=== PATIENT | female | born 1980 | race Caucasian/White ===

== ENCOUNTER 2021-06-04 10:37 | Outpatient (REF) | payer MEDICARE, MEDICAID, SELFPAY ==
[2021-06-04 14:00] LABS: MANUAL DIFF FLAG NO
[2021-06-04 14:05] LABS: Basophils Percent Auto 0.4 % (0-2); Eosinophils Absolute Auto 0.2 X10*3/uL (0.0-0.4); Eosinophils Percent Auto 1.7 % (0-4); Hematocrit 38.7 % (37.0-47.0); Hemoglobin 13.1 g/dl (12.0-16.0); Imm Gran Abs Auto 0.02 X10*3/uL (0.00-0.03); Imm Gran Pct Auto 0.2 % (0.0-0.4); Lymphocytes Percent Auto 33.4 % (20-40); Mean Corpuscular HGB Conc 33.9 g/dl (31.0-35.0); Mean Corpuscular Hemoglobin 30.2 pg (27.0-33.0); Mean Corpuscular Volume 89.2 fL (80.0-98.0); Mean Platelet Volume 10.2 fL (9.4-12.3); Monocytes Absolute Auto 0.5 X10*3/uL (0.1-1.2); Monocytes Percent Auto 5.4 % (2-11); Neutrophils Absolute Auto 5.3 x10*3/uL (2.0-8.3); Neutrophils Percent Auto 58.9 % (45-73); Platelet Count 311 X10*3/uL (160-400); Red Blood Count 4.34 X10*6/uL (4.20-5.50)
[2021-06-04 14:35] LABS: Alanine Aminotransferase 57 U/L (0-31); Albumin Level 4.2 g/dL (3.5-5.0); Alkaline Phosphatase 59 U/L (39-117); Anion Gap 15 (12-20); Aspartate Amino Transferase 44 U/L (5-31); Bilirubin Total 0.4 mg/dL (0.0-1.0); Blood Urea Nitrogen 21 mg/dL (9-16); Calcium 9.5 mg/dL (8.4-10.2); Carbon Dioxide 25 mmol/L (22-29); Chloride 103 mmol/L (96-108); Cholesterol 126 mg/dL; Estimated Glomerular Filt Rate > 60; Glucose Random 99 mg/dL (60-115); HDL Cholesterol 33 mg/dL; LDL Cholesterol Calculated 36 mg/dl; Potassium 4.8 mmol/L (3.3-5.1); Sodium 138 mmol/L (135-145); Total Protein 7.1 g/dL (6.5-8.0); Triglycerides 285 mg/dL
== END 2021-06-04 10:38 | disposition home or self-care (01) ==
LOC: HO.10HDL 10:37
PROVIDERS: Visit Provider Nurse Practitioner Psychiatric/Mental Health
DX: Z72.89 Other problems related to lifestyle (principal)
CPT/HCPCS: 36415; 80053; 80061; 85025

== ENCOUNTER 2022-07-06 08:20 | Outpatient (REF) | payer MEDICARE, MEDICAID, SELFPAY ==
[2022-07-06 08:34] LABS: MANUAL DIFF FLAG NO
--- NOTE | 2022-07-06 08:35 | ECG_ITS ---
Test Reason : LONGTERM PSYCH MEDS Blood Pressure : / mmHG Vent. Rate : 063 BPM Atrial Rate : 063 BPM P-R Int : 186 ms QRS Dur : 094 ms QT Int : 418 ms P-R-T Axes : 043 -12 020 degrees QTc Int : 427 ms Normal sinus rhythm Nonspecific T wave abnormality Abnormal ECG No previous ECGs available Referred By: Cathleen Cota Electronically Signed By:BRIDGET DIAZ MD
[2022-07-06 08:53] LABS: Basophils Absolute Auto 0.1 X10*3/uL (0.0-0.2); Basophils Percent Auto 0.6 % (0-2); Eosinophils Absolute Auto 0.4 X10*3/uL (0.0-0.4); Eosinophils Percent Auto 4.6 % (0-4); Hematocrit 38.9 % (37.0-47.0); Hemoglobin 13.3 g/dl (12.0-16.0); Imm Gran Abs Auto 0.03 X10*3/uL (0.00-0.03); Imm Gran Pct Auto 0.4 % (0.0-0.4); Lymphocytes Absolute Auto 2.6 X10*3/uL (1.2-4.9); Lymphocytes Percent Auto 30.8 % (20-40); Mean Corpuscular HGB Conc 34.2 g/dl (31.0-35.0); Mean Corpuscular Hemoglobin 29.3 pg (27.0-33.0); Mean Corpuscular Volume 85.7 fL (80.0-98.0); Mean Platelet Volume 9.5 fL (9.4-12.3); Monocytes Absolute Auto 0.5 X10*3/uL (0.1-1.2); Monocytes Percent Auto 6.1 % (2-11); Neutrophils Absolute Auto 4.8 x10*3/uL (2.0-8.3); Neutrophils Percent Auto 57.5 % (45-73); Platelet Count 247 X10*3/uL (160-400); Red Blood Count 4.54 X10*6/uL (4.20-5.50); Red Cell Distribution Width 12.4 % (11.0-16.0); White Blood Count 8.3 X10*3/uL (4.8-10.8)
[2022-07-06 09:24] LABS: Anion Gap 16 (12-20); Blood Urea Nitrogen 20 mg/dL (9-16); Calcium 9.5 mg/dL (8.4-10.2); Carbon Dioxide 24 mmol/L (22-29); Chloride 106 mmol/L (96-108); Cholesterol 86 mg/dL; Estimated Glomerular Filt Rate 60; Glucose Random 149 mg/dL (60-115); HDL Cholesterol 36 mg/dL; LDL Cholesterol Calculated 39 mg/dl; Potassium 4.8 mmol/L (3.3-5.1); Sodium 141 mmol/L (135-145); Triglycerides 57 mg/dL
== END 2022-07-06 08:21 | disposition home or self-care (01) ==
LOC: HO.LAB 08:20
PROVIDERS: PCP Internal Medicine; Visit Provider Nurse Practitioner Psychiatric/Mental Health
DX: F31.81 Bipolar II disorder (principal); Z79.899 Other long term (current) drug therapy
CPT/HCPCS: 36415; 80048; 80061; 85025; 93005

== ENCOUNTER 2023-02-14 11:00 | Outpatient (AMB) | payer MEDICARE, MEDICAID, SELFPAY ==
--- NOTE | 2023-02-14 11:02 | A.OFFVIS_ITS ---
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 Scribed for Dr. Masood Mcpherson by Sole Marquez, behavioral medical director, on 02/14/2023 at 11:27 am EST. Lopez is a 42 year old female who presents today as a new patient with complaints of right knee pain. Patient reports that this knee has been painful sine December. Her pain is keeping her up at night, increased pain with rom and weight bearing. She is taking ibuprofen and tylenol which help mildly. She has been wearing abrace that she was fit for at urgent care, which has been helping but she states that it is too tight/small. They also gave her a topical cream ,diclofenac, which has been very helpful. 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 She denies injury. Pain is located over the medial aspect of her right knee. She states is painful when she walks and she has occasional severe pain when she is just sitting doing nothing. She denies locking, clicking,giving way. HPI Comments History of Present Illness Details Jessica Lewis is a 42 year old female who presents today with complaints of right knee pain since December. States her knee is giving her pain throughout the night resulting in her not being able to sleep at night. She recently was seen at Urgent care on Jan.31. She also has trouble bending knee and walking. Reports taking ibuprofen for pain . Reports being Type 2 diabetic and has been taken of metformin. Her last sugar levels were 115-120 and does not have a high sugar intake. [facility] Surgical History (Updated 02/14/23 @ 11:20 by Jewell Chang [facility]) History of nasal surgery H/O section (2012) Status post right foot surgery Social History (Updated 02/14/23 @ 11:20 by Jewell Chang CMA) Cigarettes Per Day: 2 Current occupational status: disabled Physical Exam Extrem Other: Tenderness to palpation medial joint line. Negative Romulo's No effusion Office Procedures Joint Injection/Drain Joint Injection/Drain Details: Injected 1 mL of Decadron and 3 mL 1% lidocaine and 3 mL of 0.25% Marcaine. Site was prepped using aseptic technique. Patient tolerated the procedure well. Primary Site: right knee Approach Used: anterolateral Coding - Large joint Procedure code (CPT) selection complete Results Reviewed Results Reviewed: 02/14/23 11:30 BUPivacaine MPF 0.25 % [Sensorcaine-MPF 0.25% 10 ML] 10 ml .ROUTE .STK-MED ONE Lidocaine HCl 2 % MPF [Xylocaine 2 % MPF] 5 ml .ROUTE .STK-MED ONE dexAMETHasone sod phosphate [Decadron] 4 mg .ROUTE .STK-MED ONE I personally reviewed relevant radiographs. Nl right knee radiographs Assessment & Plan Assessment & Plan (1) Right knee pain: Code(s): M25.561 - Pain in right knee Plan: I injected her right knee. I reviewed her x-rays with her and recommend physical therapy. She also has a knee sleeve that would she was given as the 1 she was given in the emergency department is too small. I recommend she co ntinue de and anti-inflammatory creams an should her pain not improve with all the above treatments she can return to see me. Orders: Orders PT Evaluation and Treatment Today M25.561 - Pain in right knee XR knee standing BI Today M25.569 - Pain in unspecified knee XR knee RT 2V Today M25.569 - Pain in unspecified knee Coding Level of Care Code New Pt Level 3 (49135) Diagnoses Right knee pain M25.561 CPT Codes Coding - 19434 Large joint: 41776 - Large joint ([id number])
== END 2023-02-14 12:00 | disposition home or self-care (01) ==
PROVIDERS: PCP Internal Medicine; Visit Provider Orthopaedic Surgery
DX: M25.561 Pain in right knee (principal)
CPT/HCPCS: 20610; 99203

== ENCOUNTER 2023-02-14 11:00 | Outpatient (REF) | payer MEDICARE, MEDICAID, SELFPAY ==
--- NOTE | ~2023-02-14 | XR_ITS ---
EXAMINATION: XR RIGHT KNEE, BILATERAL KNEES, STANDING CLINICAL INFORMATION: Bilateral knee pain. COMPARISON: None available. TECHNIQUE: 2 views of right knee. AP standing view of bilateral knees. FINDINGS: AP view of the right knee demonstrates minimal joint space narrowing and tiny medial marginal osteophytes. 3 mm sclerotic focus overlying the medial femoral condyle may represent a bone island. Left knee joint effusion. Small left quadriceps enthesophyte. Minimal medial joint space narrowing and marginal osteophytes. XR/XR knee standing BI IMPRESSION: Left knee joint effusion with minimal degenerative changes.
--- NOTE | ~2023-02-14 | XR_ITS ---
EXAMINATION: XR RIGHT KNEE, BILATERAL KNEES, STANDING CLINICAL INFORMATION: Bilateral knee pain. COMPARISON: None available. TECHNIQUE: 2 views of right knee. AP standing view of bilateral knees. FINDINGS: AP view of the right knee demonstrates minimal joint space narrowing and tiny medial marginal osteophytes. 3 mm sclerotic focus overlying the medial femoral condyle may represent a bone island. Left knee joint effusion. Small left quadriceps enthesophyte. Minimal medial joint space narrowing and marginal osteophytes. XR/XR knee RT 2V IMPRESSION: Left knee joint effusion with minimal degenerative changes.
== END 2023-02-14 11:01 | disposition home or self-care (01) ==
LOC: HO.HOSX 11:00
PROVIDERS: PCP Internal Medicine; Visit Provider Orthopaedic Surgery
DX: M25.561 Pain in right knee (principal)
CPT/HCPCS: 20610; 73560; 73565; J1100

== ENCOUNTER → 2023-03-24 09:20 | Outpatient (REF) | payer MEDICARE, MEDICAID, SELFPAY ==
--- NOTE | 2023-03-24 09:27 | ECG_ITS ---
Test Reason : f31.81, f42.8 Blood Pressure : / mmHG Vent. Rate : 067 BPM Atrial Rate : 067 BPM P-R Int : 170 ms QRS Dur : 094 ms QT Int : 412 ms P-R-T Axes : 035 -07 032 degrees QTc Int : 435 ms Normal sinus rhythm Normal ECG When compared with ECG of 06-JUL-2022 08:39, No significant change was found Referred By: Cathleen Cota Electronically Signed By:TOÑITO GONSALEZ MD
[2023-03-24 09:37] LABS: MANUAL DIFF FLAG NO
[2023-03-24 10:02] LABS: Basophils Percent Auto 0.4 % (0-2); Eosinophils Absolute Auto 0.2 X10*3/uL (0.0-0.4); Eosinophils Percent Auto 1.8 % (0-4); Hematocrit 40.4 % (37.0-47.0); Hemoglobin 13.9 g/dl (12.0-16.0); Imm Gran Abs Auto 0.06 X10*3/uL (0.00-0.03); Imm Gran Pct Auto 0.6 % (0.0-0.4); Lymphocytes Absolute Auto 3.1 X10*3/uL (1.2-4.9); Lymphocytes Percent Auto 28.5 % (20-40); Mean Corpuscular HGB Conc 34.4 g/dl (31.0-35.0); Mean Corpuscular Hemoglobin 29.4 pg (27.0-33.0); Mean Corpuscular Volume 85.6 fL (80.0-98.0); Mean Platelet Volume 9.5 fL (9.4-12.3); Monocytes Absolute Auto 0.7 X10*3/uL (0.1-1.2); Monocytes Percent Auto 6.4 % (2-11); Neutrophils Absolute Auto 6.7 x10*3/uL (2.0-8.3); Neutrophils Percent Auto 62.3 % (45-73); Platelet Count 262 X10*3/uL (160-400); Red Blood Count 4.72 X10*6/uL (4.20-5.50); Red Cell Distribution Width 12.4 % (11.0-16.0); White Blood Count 10.8 X10*3/uL (4.8-10.8)
[2023-03-24 10:41] LABS: Alanine Aminotransferase 37 U/L (0-31); Albumin Level 4.5 g/dL (3.5-5.0); Alkaline Phosphatase 68 U/L (39-117); Anion Gap 15 (12-20); Aspartate Amino Transferase 21 U/L (5-31); Bilirubin Total 0.5 mg/dL (0.0-1.0); Blood Urea Nitrogen 19 mg/dL (9-16); Calcium 9.8 mg/dL (8.4-10.2); Carbon Dioxide 24 mmol/L (22-29); Chloride 105 mmol/L (96-108); Cholesterol 121 mg/dL (<200); Estimated Glomerular Filt Rate 57; Glucose Fasting 147 mg/dL (60-99); HDL Cholesterol 30 mg/dL (>40); LDL Cholesterol Calculated 69 mg/dL (<100); Potassium 4.5 mmol/L (3.3-5.1); Sodium 139 mmol/L (135-145); Total Protein 7.7 g/dL (6.5-8.0); Triglycerides 110 mg/dL (<150)
== END ==
LOC: HO.CARD 09:20
PROVIDERS: PCP Physician Assistant Medical; Visit Provider Nurse Practitioner Psychiatric/Mental Health
DX: F31.81 Bipolar II disorder (principal); F42.8 Other obsessive-compulsive disorder; Z79.899 Other long term (current) drug therapy
CPT/HCPCS: 36415; 80053; 80061; 85025; 93005

== ENCOUNTER 2024-04-12 09:35 | Outpatient (REF) | payer MEDICARE, MEDICAID, SELFPAY ==
--- NOTE | 2024-04-12 09:56 | ECG_ITS ---
Test Reason : med check Blood Pressure : / mmHG Vent. Rate : 062 BPM Atrial Rate : 062 BPM P-R Int : 196 ms QRS Dur : 096 ms QT Int : 290 ms P-R-T Axes : 042 -08 015 degrees QTc Int : 294 ms Normal sinus rhythm Nonspecific T wave abnormality Abnormal ECG When compared with ECG of 24-MAR-2023 09:38, QT has shortened Referred By: Cathleen Cota Electronically Signed By:Guero Vargas
[2024-04-12 09:59] LABS: MANUAL DIFF FLAG NO
[2024-04-12 10:25] LABS: Basophils Absolute Auto 0.1 X10*3/uL (0.0-0.2); Basophils Percent Auto 0.6 % (0-2); Eosinophils Absolute Auto 0.2 X10*3/uL (0.0-0.4); Eosinophils Percent Auto 2.7 % (0-4); Hematocrit 36.9 % (37.0-47.0); Hemoglobin 12.8 g/dl (12.0-16.0); Imm Gran Abs Auto 0.03 X10*3/uL (0.00-0.03); Imm Gran Pct Auto 0.4 % (0.0-0.4); Lymphocytes Percent Auto 36.4 % (20-40); Mean Corpuscular HGB Conc 34.7 g/dl (31.0-35.0); Mean Corpuscular Volume 86.6 fL (80.0-98.0); Mean Platelet Volume 9.3 fL (9.4-12.3); Monocytes Absolute Auto 0.5 X10*3/uL (0.1-1.2); Monocytes Percent Auto 6.3 % (2-11); Neutrophils Absolute Auto 4.4 x10*3/uL (2.0-8.3); Neutrophils Percent Auto 53.6 % (45-73); Platelet Count 258 X10*3/uL (160-400); Red Blood Count 4.26 X10*6/uL (4.20-5.50); Red Cell Distribution Width 12.8 % (11.0-16.0); White Blood Count 8.2 X10*3/uL (4.8-10.8)
[2024-04-12 10:54] LABS: Alanine Aminotransferase 48 U/L (0-31); Albumin Level 4.3 g/dL (3.5-5.0); Alkaline Phosphatase 53 U/L (39-117); Anion Gap 10 (12-20); Aspartate Amino Transferase 22 U/L (5-31); Bilirubin Total 0.6 mg/dL (0.0-1.0); Blood Urea Nitrogen 15 mg/dL (9-16); Carbon Dioxide 25 mmol/L (22-29); Chloride 107 mmol/L (96-108); Cholesterol 112 mg/dL (<200); Estimated Glomerular Filt Rate 52; Glucose Fasting 123 mg/dL (60-99); HDL Cholesterol 29 mg/dL (>40); LDL Cholesterol Calculated 58 mg/dL (<100); Potassium 4.7 mmol/L (3.3-5.1); Sodium 137 mmol/L (135-145); Triglycerides 125 mg/dL (<150)
== END 2024-04-12 09:36 | disposition home or self-care (01) ==
LOC: HO.LAB 09:35
PROVIDERS: PCP Physician Assistant Medical; Visit Provider Nurse Practitioner Psychiatric/Mental Health
DX: Z79.899 Other long term (current) drug therapy (principal)
CPT/HCPCS: 36415; 80053; 80061; 85025; 93005

== ENCOUNTER → 2024-04-12 09:56 | Outpatient (BNV) | payer MEDICARE, MEDICAID, SELFPAY | PROVIDERS: PCP Physician Assistant Medical; Visit Provider Internal Medicine Cardiovascular Disease | DX: R94.31 Abnormal electrocardiogram [ECG] [EKG] (principal) | CPT/HCPCS: 93010 ==

== ENCOUNTER → 2025-03-25 09:50 | Outpatient (REF) | payer MEDICARE, MEDICAID, SELFPAY ==
--- NOTE | 2025-03-25 09:58 | ECG_ITS ---
Test Reason : EKG DUE TO MED COMBINATIONS Blood Pressure : */* mmHG Vent. Rate : 60 BPM Atrial Rate : 60 BPM P-R Int : 198 ms QRS Dur : 96 ms QT Int : 430 ms P-R-T Axes : 45 -12 9 degrees QTcB Int : 430 ms Atrial-sensed ventricular-paced rhythm Abnormal ECG When compared with ECG of 12-Apr-2024 09:56, No significant changes seen Referred By: Cathleen Cota Electronically Signed By: BENJAMIN BUCKNER
[2025-03-25 10:13] LABS: MANUAL DIFF FLAG NO
[2025-03-25 10:28] LABS: Hematocrit 38.2 % (37.0-47.0); Hemoglobin 13.1 g/dl (12.0-16.0); Imm Gran Abs Auto 0.04 X10*3/uL (0.00-0.03); Imm Gran Pct Auto 0.4 % (0.0-0.4); Lymphocytes Absolute Auto 3.0 X10*3/uL (1.2-4.9); Mean Corpuscular HGB Conc 34.3 g/dl (31.0-35.0); Mean Corpuscular Hemoglobin 29.9 pg (27.0-33.0); Mean Corpuscular Volume 87.2 fL (80.0-98.0); NRBC Abs Auto 0.000 X10*3/uL (0.0-0.012); NRBC Pct Auto 0.0 /100WBC (0.0-0.2); Platelet Count 269 X10*3/uL (160-400); Red Blood Count 4.38 X10*6/uL (4.20-5.50); White Blood Count 9.0 X10*3/uL (4.8-10.8)
[2025-03-25 11:15] LABS: Alanine Aminotransferase 56 U/L (0-31); Albumin Level 4.6 g/dL (3.5-5.0); Alkaline Phosphatase 62 U/L (39-117); Anion Gap 12 (12-20); Aspartate Amino Transferase 34 U/L (5-31); Blood Urea Nitrogen 17 mg/dL (9-16); Calcium 9.7 mg/dL (8.4-10.2); Carbon Dioxide 25 mmol/L (22-29); Chloride 109 mmol/L (96-108); Cholesterol 110 mg/dL (<200); Estimated Glomerular Filt Rate > 60; HDL Cholesterol 31 mg/dL (>40); Potassium 4.6 mmol/L (3.3-5.1); Sodium 141 mmol/L (135-145); Total Protein 7.2 g/dL (6.5-8.0); Triglycerides 89 mg/dL (<150)
--- OUTSIDE RECORDS SUMMARY | 2025-03-25 11:31 | XMS_ITS | Encounter Summary ---
Author Organization [employer] Address [address] [place] [address] Care Team Providers Care Direct Casting Operator Name Role Phone Unavailable Primary Care Provider Unavailabl e Encounter Details Date Type Department Care Team (Late st Contact Info) Description 07/30/2022 Abstract [facility] ADULT DENTAL [address] [place] [address] Kurt Love, JESSICA [address] [place] [address] Social History Tobacco Use Types Packs/Day Years Used Date Smoking Tobacco: Former Cigarettes Smokeless Tobacco: Former Comments Unknown Sex and Gender Information Value Date Recorded Sex Assigned at Female 03/29/2022 10:24 AM EDT Legal Sex Female 10:24 AM EDT Gender Identity Female 03/29/2022 10:24 AM EDT Sexual Orientation Straight 03/29/2022 10 :24 AM EDT COVID-19 Exposure Response Date Recorded In the last 10 days, have yo u been in contact with someone who was confirmed or suspected to have Coronavirus/COVID-19? No / Unsure 07/29/2022 8:47 AM EST documented as of this encounter Plan of Treatment Not on file documented as of this encounter Visit Diagnoses Not on filedocumented in this encounter
--- OUTSIDE RECORDS SUMMARY | 2025-03-25 11:31 | XMS_ITS | Encounter Summary ---
Author Organization [employer] Address [address] [place] [address] Care Team Providers Care Emergency Medical Technician/Driver Name Role Phone Unavailable Primary Care Provider Unavailabl e Reason for Visit * Reason Comments Med Refill Encounter Details Date Type Department Care Team (Late st Contact Info) Description 02/20/2024 Refill [facility] ADULT DENTAL [address] [place] [address] Tequila Smith BDS Social History Tobacco Use Types Packs/Day Years Used Date Smoking Tobacco: Former Cigarettes Smokeless Tobacco: Former Comments Unknown Sex and Gender Information Value Date Recorded Sex Assigned at Female 03/29/2022 10:24 AM EDT Legal Sex Female 10:24 AM EDT Gender Identity Female 03/29/2022 10:24 AM EDT Sexual Orientation Straight 03/29/2022 10 :24 AM EDT documented as of this encounter Miscellaneous Notes * Telephone Encounter - Marino León DDS - 02/23/2024 9:15 AM EDT Approving, but needs appt for additional refills. documented in this encounter Plan of Treatment Not on file documented as of this encounter Visit Diagnoses Not on filedocumented in this encounter
--- OUTSIDE RECORDS SUMMARY | 2025-03-25 11:31 | XMS_ITS | Clinical Summary ---
Author Organization [employer] Address [address] [place] [address] Care Team Providers Care Food And Beverage Attendant Name Role Phone Unavailable Primary Care Provider Unavailabl e Allergies Active Allergy Reactions Criticality Noted Date Comments Medroxyprogesterone 04/11/2013 Medroxyprogesterone Acetate Hives High 07/15/19 23 Nortriptyline 07/15/2022 Ziprasidone Anaphylaxis High 04/11/2013 Medications propranolol (Inderal) 60 MG tablet Take 1 tablet by mouth every 12 (twelve) hours. Active doxepin (SINEquan) 25 MG capsule TAKE 1 CAPSULE BY MOUTH EVERYDAY AT BEDTIME 07/01/19 23 Active escitalopram (Lexapro) 5 MG tablet Take 10 mg by mouth. 07/12/19 23 Active atorvastatin (Lipitor) 40 MG tablet Take 1 tablet by mouth Once per day. 11/13/19 23 Active buPROPion XL (Wellbutrin XL) 300 MG 24 hr tablet Take 300 mg by mouth Once per day. Active clonazePAM (KlonoPIN) 1 MG tablet Take 1 tablet by mouth if needed each day. 10/07/19 21 Active Aimovig 140 MG/ML injection INJECT 1 MILLILITER (140MG) SUBCUTANEOUSLY MONTHLY IN ABDOMEN, THIGH, OR OUTER UPPER ARM Active Etonogestrel (NEXPLANON SC) See Instructions, Subcutaneous Infusion Once, 0 Refills, Maintenance, 10/31/23 14:30:00 EDT, Partial fill upon patient request if the prescription is for a schedule II opioid drug. 10/31/19 24 Active fluticasone (Flonase) 50 MCG/ACT nasal spray Administer 2 sprays into each nostril Once per day. 12/30/19 23 Active hydrOXYzine pamoate (Vistaril) 50 MG capsule TAKE 1 CAPSULE BY MOUTH THREE TIMES A DAY NEEDED ANXIETY, PANIC Active ibuprofen 800 MG tablet TAKE 1 TABLET BY MOUTH 3 TIMES A DAY WITH FOOD NEEDED FOR HEADACHE 08/30/19 21 Active lamoTRIgine (LaMICtal) 200 MG tablet TAKE 1 TABLET BY MOUTH ONCE A DAY MOOD STABILITY Active metFORMIN (Glucophage) 500 MG tablet Take 1 tablet by mouth 2 times daily. Active naproxen (Naprosyn) 500 MG tablet Take 1 tablet by mouth 2 times daily. 10/17/19 22 Active omeprazole (PriLOSEC) [address] capsule Take 1 capsule by mouth Once per day. 12/25/19 23 Active QUEtiapine (SEROquel) 100 MG tablet Take 100 mg by mouth in the morning. Active SUMAtriptan (Imitrex) 100 MG tablet TAKE 1 TAB BY MOUTH ONCE WITH FLUIDS AT ONSET OF MIGRAINE. MAY REPEAT AFTER 2 HRS IF NEEDED Active betamethasone dipropionate 0.05 % cream Active Sodium Fluoride (DentaGel) 1.1 % gel PLEASE USE PEA SIZE TO BRUSH YOUR TEETH TWICE DAILY. SPIT AFTER BRUSHING. DO NOT RINSE. 56 g 02/23/20 24 Active Sodium Fluoride (PreviDent 5000 Booster Plus) 1.1 % paste Apply 1 Application. to teeth 2 times daily. 112 g 3 11/15/19 25 Active Mounjaro 7.5 MG/0.5ML solution auto-injector Inject 7.5 mg every week by subcutaneous route for 30 days. 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 Diabetes mellitus 07/28/2018 Anxiety state 07/03/2013 Overview (11/13/2024): RECORDED 07/03/2013 10:39AM BY AMADEO ALVARADO, OFFICE VISIT Hyperlipidemia 07/03/2013 Overview (11/13/2024): RECORDED 07/03/2013 10:38AM BY AMADEO ALVARADO, OFFICE VISIT Migraine 05/30/2006 Social History Tobacco Use Types Packs/Day Years Used Date Smoking Tobacco: Former Cigarettes Smokeless Tobacco: Former Tobacco Cessation:Counseling Given: Not Answered Comments Unknown Sex and Gender Information Value Date Recorded Sex Assigned at Female 03/29/2022 10:24 AM EDT Legal Sex Female 10:24 AM EDT Gender Identity Female 03/29/2022 10:24 AM EDT Sexual Orientation Straight 03/29/2022 10 :24 AM EDT Last Filed Vital Signs Vital Sign Reading Time Taken Comments Blood Pressure 122/80 12/06/2024 9:31 AM EDT Pulse 60 12/06/2024 9:31 AM EDT Temperature - - Respiratory Rate - - Oxygen Saturation - - Inhaled Oxygen Concentration - - Weight - - Height - - Body Mass Index - - Plan of Treatment Health Maintenance Due Date Last Done Comments Dental X-Ray: Full Mouth 1981 Depression Screening 1981 Diabetes: Hemoglobin A1C 1981 HIV Screening 1981 Lipid Panel 1981 SDOH Screening 1981 Disability Screening 1981 Diabetes: Foot Exam 1991 Eye Exam 1991 Alcohol/Substance Use Screening 1993 Family Planning (PISQ) 1996 HPV Vaccines (1 - 3-dose series) 1996 Hepatitis C Screening 1999 Diabetes: Urine Protein Screening 2000 Hepatitis A Vaccines (1 of 2 - Risk 2-dose series) 2000 Hepatitis B Vaccines (1 of 3 - 19+ 3-dose series) 2000 Pap Smear 2002 Cervical Cancer Screening 2011 HPV/Cotest 2011 COVID-19 Vaccine ( season) 2025 03/25/2022, 03/25/2021, 09/17/2020, Additional history exists Influenza Vaccine (#1) 2025 , 02/11/2022, 02/24/2021, Additional history exists Dental Oral Exam 05/17/2025 11/14/2024, 12/2023, 12/14/2023 Dental Prophylaxis 05/17/2025 11/14/2024, 12/14/2023 Dental X-Ray: Bitewings 11/15/2025 11/15/19 25, 11/13/2024, 12/14/2023 Tobacco Screening 12/06/2025 12/06/2024 DTaP/Tdap/Td Vaccines (4 - Td or Tdap) 06/09/2026 06/09/2016, 11/20/2012, 09/12/2008 Mammogram 09/07/2026 09/07/2024, 10/0 01/2024, 05/26/2021 Zoster Vaccines (1 of 2) 2031 RSV Patients and Patients Aged 60 years or older (1 - 1-dose 75+ series) 2056 Pneumococcal Vaccine: Pediatrics (0 to 5 Years) and At-Risk Patients (6 to 49) Years Completed 12/03/2022, 11/27/2020 HIB Vaccines Aged Out No longer eligi ble based on patient's age to complete this topic IPV Vaccines Aged Out No longer eligi ble based on patient's age to complete this topic Meningococcal B Vaccine Aged Out No l onger eligible based on patient's age to complete this topic Meningococcal Vaccine Aged Out No lynn spenser eligible based on patient's age to complete this topic RSV under 20 months Aged Out No longe r eligible based on patient's age to complete this topic Rotavirus Vaccines Aged Out No longer eligible based on patient's age to complete this topic Procedures Procedure Name Priority Date/Time Associated Diagnosis Comments PROPHYLAXIS - ADULT Routine 11/14/2024 9 :00 AM EDT BITEWINGS - 4 RADIOGRAPHIC IMAGES Routine 11/14/2024 9:00 AM EDT PERIODIC ORAL EVALUATION - ESTABLISHED PATIENT Routine 11/14/2024 9:00 AM EDT from Last 3 Months or Most Recently Relevant to Health Maintenance Insurance [address] [place] [id number] [facility] STAND ADULT
--- OUTSIDE RECORDS SUMMARY | 2025-03-25 11:31 | XMS_ITS | Encounter Summary ---
Author Organization [employer] Address [address] [place] [address] Care Team Providers Care Straight Line Edger Name Role Phone Unavailable Primary Care Provider Unavailabl e Encounter Details Date Type Department Care Team (Latest Contact Info) Description 11/07/2018 Abstract [facility] CONVERSIONS Dental, Provider, DDS Social History Tobacco Use Types Packs/Day Years Used Date Smoking Tobacco: Never Assessed Comments Unknown Sex and Gender Information Value Date Recorded Sex Assigned at Female 03/29/2022 10:24 AM EDT Legal Sex Female 10:24 AM EDT Gender Identity Female 03/29/2022 10:24 AM EDT Sexual Orientation Straight 03/29/2022 10 :24 AM EDT documented as of this encounter Plan of Treatment Not on file documented as of this encounter Visit Diagnoses Not on filedocumented in this encounter
--- OUTSIDE RECORDS SUMMARY | 2025-03-25 11:31 | XMS_ITS | Encounter Summary ---
Author Organization [employer] Address [address] [place] [id number] Care Team Providers Care Primary Teaching Assistant Name Role Phone Unavailable Primary Care Provider Unavailabl e Encounter Details Date Type Department Care Team (Latest Contact Info) Description 10/21/2020 Abstract [facility] CONVERSIONS Dental, Provider, DDS Social [...]
--- OUTSIDE RECORDS SUMMARY | 2025-03-25 11:31 | XMS_ITS | Encounter Summary ---
Author Organization [employer] Address [address] [place] [address] Care Team Providers Care Cylinder Checker Name Role Phone Unavailable Primary Care Provider Unavailabl e Reason for Visit * Reason Onset Date Comments temp crown fell 05/10/2024 Encounter Details Date Type Department Care Team (Late st Contact Info) Description 05/10/2024 Telephone [facility] ADULT DENTAL [address] [place] [address] Kurt Love, DMD [address] [place] [address] temp crown fell Social History Tobacco Use Types Packs/Day Years [...] encounter Miscellaneous Notes * Telephone Encounter - Natalia Rodriguez - 05/10/2024 8:18 AM EST Patient called in reporting temp crown had fallen off. hotel desk clerk confirmed with provider that due to appt for permanent crown delivery is on 05/17 there is no need to re-cement temp crown. Patient will be here 05/17. documented in this encounter Plan of Treatment Not on file documented as of this encounter Visit Diagnoses Not on filedocumented in this encounter
--- OUTSIDE RECORDS SUMMARY | 2025-03-25 11:31 | XMS_ITS | Encounter Summary ---
Author Organization [employer] Address [address] [place] [id number] Care Team Providers Care Industrial Staff Nurse Name Role Phone Unavailable Primary Care Provider Unavailabl e Encounter Details Date Type Department Care Team (Latest Contact Info) Description 06/22/2021 Abstract [facility] CONVERSIONS Dental, Provider, DDS Social History Tobacco [...]
== END ==
LOC: HO.CARD 09:50
PROVIDERS: Visit Provider Nurse Practitioner Psychiatric/Mental Health
DX: Z79.899 Other long term (current) drug therapy (principal)
CPT/HCPCS: 36415; 80053; 80061; 85025; 93005

== ENCOUNTER → 2025-03-25 09:58 | Outpatient (BNV) | payer MEDICARE, MEDICAID, SELFPAY | PROVIDERS: Visit Provider Internal Medicine | DX: R94.31 Abnormal electrocardiogram [ECG] [EKG] (principal); Z95.0 Presence of cardiac pacemaker | CPT/HCPCS: 93010 ==